=== PATIENT | female | born 1980 | race Hispanic/Latino ===

== ENCOUNTER 2021-10-22 03:21 | Emergency (ER) | payer BC ==
[~2021-10-22] VITALS: Ht 165.1 cm; Wt 77.0 kg
[2021-10-22] MEDS ORDERED: ZESTRIL10 M1 PO (03:58)
[2021-10-22] MEDS ORDERED: TORADOL PO (05:54)
[2021-10-22] MEDS ORDERED: FLEXERIL5 M1 PO (05:54)
[2021-10-22 05:59] VITALS: BP 136/76
== END 2021-10-22 06:10 | disposition home or self-care (01) | DRG 93 ==
LOC: ED 03:21 → EDBD 03:21 → ED 04:13
DX: R25.2 Cramp and spasm (principal); I10 Essential (primary) hypertension